=== PATIENT | female | born 1935 | race Caucasian/White ===

== ENCOUNTER 2018-11-27 09:46 | Inpatient (IN) | payer MEDICARE, OTHER ==
[2018-11-27 10:22] LABS: ADD MAN DIFF? NO
[2018-11-27 10:26] LABS: WHITE BLOOD COUNT 11.7 10^3/ul (4.8-10.8)
[2018-11-27 10:26] LABS: ABNORMAL IP MESSAGE 1; BASOPHIL # 0.1 10^3/ul (0.0-0.1); BASOPHILS % 0.4 % (0.0-2.0); EOSINOPHILS % 0.1 % (0.0-7.0); HEMATOCRIT 40.4 % (37.0-47.0); HEMOGLOBIN 12.5 g/dl (12.0-16.0); LYMPHOCYTES # 2.2 10^3/ul (0.8-2.9); LYMPHOCYTES % 18.5 % (15.0-51.0); MEAN CORPUSCULAR HEMOGLOBIN 24.4 pg (29.0-33.0); MEAN CORPUSCULAR HGB CONC 30.9 g/dl (32.0-37.0); MEAN CORPUSCULAR VOLUME 78.9 fl (82.0-101.0); MEAN PLATELET VOLUME 9.9 fl (7.4-10.4); MONOCYTE # 1.3 10^3/ul (0.3-0.9); MONOCYTES % 10.6 % (0.0-11.0); NEUTROPHIL # 8.2 10^3/ul (1.6-7.5); NEUTROPHILS % 69.7 % (39.0-77.0); PLATELET COUNT 235 10^3/UL (140-415); RED BLOOD COUNT 5.12 10^6/ul (4.20-5.40); RED CELL DISTRIBUTION WIDTH 23.3 % (11.5-14.5)
[2018-11-27 10:27] LABS: POSITIVE DIFF @See below
[2018-11-27] MEDS: CEFEPIME 2GM/50 ML (PMX) 50 ML IVPB (10:35)
[2018-11-27] MEDS: SODIUM CHLORIDE 0.9% 1L BAG IV* (10:36)
[2018-11-27 10:50] LABS: ALANINE AMINOTRANSFERASE 40 IU/L (13-69); ALBUMIN/GLOBULIN RATIO 0.69; ALKALINE PHOSPHATASE 128 IU/L (42-121); ANION GAP 7 (5-13); ASPARTATE AMINO TRANSFERASE 69 IU/L (15-46); BILIRUBIN,INDIRECT 0.2 mg/dl (0-1.1); BILIRUBIN,TOTAL 0.2 mg/dl (0.2-1.3); BLOOD UREA NITROGEN 11 mg/dl (7-20); CALCIUM 8.3 mg/dl (8.4-10.2); CARBON DIOXIDE 29 mmol/L (21-31); CHLORIDE 98 mmol/L (97-110); CREATININE 0.33 mg/dl (0.44-1.00); GLUCOSE 144 mg/dl (70-220); POTASSIUM 4.1 mmol/L (3.5-5.1); SODIUM 134 mmol/L (135-144); TOTAL PROTEIN 7.3 g/dl (6.1-8.1)
[2018-11-27 10:53] LABS: INR 2.12; PARTIAL THROMBOPLASTIN TIME 41.3 Sec (23.0-35.0); PROTIME 23.8 Sec (11.9-14.9); PT RATIO 1.9
[2018-11-27] MEDS: DEXAMETHASONE 10 MG/ML 1 ML INJ IV (10:59)
[2018-11-27] MEDS: MAGNESIUM SULFATE 2 GM/50 ML 50 ML IVPB (10:59)
[2018-11-27 11:01] LABS: TROPONIN-I < 0.012 ng/ml (0.000-0.120)
[2018-11-27] MEDS: ALBUTEROL 0.5% (NEB) 2.5 MG/0.5 ML AMP INH (11:09)
[2018-11-27] MEDS: IPRATROPIUM (NEB) 0.5 MG/2.5 ML AMP INH (11:09)
[2018-11-27] MEDS: VANCOMYCIN 1 GM (PMX) 250 ML IVPB (11:18)
[2018-11-27 11:40] LABS: ADD UMIC YES; UR AMORPHOUS CRYSTAL FEW /HPF (NONE SEEN); UR ASCORBIC ACID 40 mg/dL (NEGATIVE); UR BACTERIA MANY /HPF (NONE SEEN); UR BILIRUBIN (Dip) NEGATIVE (NEGATIVE); UR BLOOD (Dip) 2+ mg/dL (NEGATIVE); UR BUDDING YEAST FEW /HPF (NONE SEEN); UR CLARITY TURBID (CLEAR); UR COLOR AMBER (YELLOW); UR GLUCOSE (Dip) NEGATIVE (NEGATIVE); UR KETONES (Dip) NEGATIVE (NEGATIVE); UR LEUKOCYTE ESTERASE (Dip) 1+ Leu/ul (NEGATIVE); UR MUCUS MODERATE /HPF (NONE SEEN); UR NITRITE (Dip) NEGATIVE (NEGATIVE); UR NONSQUAMOUS EPITHELIAL CELL 1 /HPF (NONE SEEN); UR RBC 66 /HPF (0-5); UR SQUAMOUS EPITHELIAL CELL FEW /HPF (FEW); UR TOTAL PROTEIN (Dip) 1+ mg/dl (NEGATIVE); UR UROBILINOGEN (Dip) NEGATIVE (NEGATIVE); UR WBC > 182 /HPF (0-5)
[2018-11-27 12:57] LABS: LACTIC ACID 2.5 mmol/L (0.5-2.0)
[2018-11-27] MEDS ORDERED: ONDANSETRON 4 MG INJ IV (13:00)
[2018-11-27] MEDS ORDERED: ACETAMINOPHEN 325 MG TAB PO (13:00)
[2018-11-27] MEDS ORDERED: METOPROLOL 25 MG TAB PO (15:30)
[2018-11-27] MEDS ORDERED: VANCOMYCIN IV PER PHARMACY XX (15:30)
[2018-11-27] MEDS ORDERED: PENDING SANTYL ORDER FOR WOUND CARE XX (16:00)
[2018-11-27] MEDS ORDERED: ALBUTEROL/IPRATROPIUM (NEB) 3 ML AMP HHN (16:00)
[2018-11-27] MEDS: METHYLPREDNISOLONE 40 MG INJ IV (17:27)
[2018-11-27] MEDS: ALBUTEROL/IPRATROPIUM (NEB) 3 ML AMP HHN ×2 (18:17→21:09)
[2018-11-27] MEDS: GUAIFENESIN LA 600 MG TABSR PO (21:33)
[2018-11-27] MEDS: PRIMIDONE 250 MG TAB PO (21:33)
[2018-11-27] MEDS: DOCUSATE SODIUM 100 MG CAP PO (21:33)
[2018-11-27] MEDS: METOPROLOL 25 MG TAB PO (21:35)
[2018-11-27] MEDS: CALCIUM/VITAMIN D (500/200) TAB PO (21:35)
[2018-11-27] MEDS: ATORVASTATIN 80 MG TAB PO (21:36)
[2018-11-27] MEDS: CEFEPIME 1GM/50 ML (PMX) 50 ML IVPB (21:37)
[2018-11-28] MEDS: METHYLPREDNISOLONE 40 MG INJ IV ×5 (00:32→23:14)
[2018-11-28] MEDS: ALBUTEROL/IPRATROPIUM (NEB) 3 ML AMP HHN ×6 (01:49→20:33)
[2018-11-28] MEDS: PANTOPRAZOLE (EC) 40 MG TAB PO (05:19)
[2018-11-28] MEDS: CEFEPIME 1GM/50 ML (PMX) 50 ML IVPB ×2 (09:06→20:40)
[2018-11-28] MEDS: FLUOXETINE 10 MG CAP PO (09:13)
[2018-11-28] MEDS: METOPROLOL 25 MG TAB PO ×2 (09:13→20:41)
[2018-11-28] MEDS: BISACODYL 10 MG SUPP PR (09:13)
[2018-11-28] MEDS: PRIMIDONE 250 MG TAB PO ×2 (09:15→20:41)
[2018-11-28] MEDS: CALCIUM/VITAMIN D (500/200) TAB PO ×2 (09:15→20:40)
[2018-11-28] MEDS: DOCUSATE SODIUM 100 MG CAP PO ×2 (09:15→20:40)
[2018-11-28] MEDS: GUAIFENESIN LA 600 MG TABSR PO ×2 (09:15→20:40)
[2018-11-28] MEDS: ASCORBIC ACID 500 MG TAB PO (09:15)
[2018-11-28] MEDS: ENOXAPARIN 30 MG/0.3 ML SYG SC (09:38)
[2018-11-28] MEDS: VANCOMYCIN 750 MG (PMX) 250 ML IVPB (09:44)
[2018-11-28] MEDS: PREGABALIN 75 MG CAP PO ×2 (11:25→20:43)
[2018-11-28] MEDS: SULFASALAZINE 500 MG TAB PO ×2 (13:21→20:40)
[2018-11-28] MEDS: ATORVASTATIN 80 MG TAB PO (20:40)
[2018-11-29] MEDS: ALBUTEROL/IPRATROPIUM (NEB) 3 ML AMP HHN ×6 (00:29→20:43)
[2018-11-29] MEDS: PANTOPRAZOLE (EC) 40 MG TAB PO (05:45)
[2018-11-29] MEDS: METHYLPREDNISOLONE 40 MG INJ IV ×4 (05:45→23:16)
[2018-11-29 08:36] LABS: ADD MAN DIFF? NO
[2018-11-29 08:41] LABS: WHITE BLOOD COUNT 9.9 10^3/ul (4.8-10.8)
[2018-11-29 08:41] LABS: ABNORMAL IP MESSAGE 1; BASOPHILS % 0.1 % (0.0-2.0); HEMATOCRIT 37.7 % (37.0-47.0); HEMOGLOBIN 11.4 g/dl (12.0-16.0); LYMPHOCYTES # 0.9 10^3/ul (0.8-2.9); LYMPHOCYTES % 9.5 % (15.0-51.0); MEAN CORPUSCULAR HEMOGLOBIN 24.2 pg (29.0-33.0); MEAN CORPUSCULAR HGB CONC 30.2 g/dl (32.0-37.0); MEAN CORPUSCULAR VOLUME 79.9 fl (82.0-101.0); MONOCYTE # 0.5 10^3/ul (0.3-0.9); MONOCYTES % 5.5 % (0.0-11.0); NEUTROPHIL # 8.3 10^3/ul (1.6-7.5); NEUTROPHILS % 84.2 % (39.0-77.0); PLATELET COUNT 241 10^3/UL (140-415); RED BLOOD COUNT 4.72 10^6/ul (4.20-5.40); RED CELL DISTRIBUTION WIDTH 23.6 % (11.5-14.5)
[2018-11-29 08:43] LABS: POSITIVE DIFF @See below
[2018-11-29] MEDS: CEFEPIME 1GM/50 ML (PMX) 50 ML IVPB ×2 (09:10→21:55)
[2018-11-29] MEDS: PRIMIDONE 250 MG TAB PO ×2 (09:11→21:55)
[2018-11-29] MEDS: SULFASALAZINE 500 MG TAB PO ×3 (09:11→21:55)
[2018-11-29] MEDS: BISACODYL 10 MG SUPP PR (09:11)
[2018-11-29] MEDS: FLUOXETINE 10 MG CAP PO (09:11)
[2018-11-29] MEDS: ASCORBIC ACID 500 MG TAB PO (09:11)
[2018-11-29] MEDS: CALCIUM/VITAMIN D (500/200) TAB PO ×2 (09:11→21:55)
[2018-11-29] MEDS: GUAIFENESIN LA 600 MG TABSR PO ×2 (09:11→21:55)
[2018-11-29] MEDS: DOCUSATE SODIUM 100 MG CAP PO ×2 (09:11→21:56)
[2018-11-29] MEDS: PREGABALIN 75 MG CAP PO ×2 (09:12→21:59)
[2018-11-29] MEDS: METOPROLOL 25 MG TAB PO ×2 (09:12→21:56)
[2018-11-29] MEDS: ENOXAPARIN 30 MG/0.3 ML SYG SC (09:19)
[2018-11-29 09:23] LABS: ANION GAP 5 (5-13); BLOOD UREA NITROGEN 11 mg/dl (7-20); CALCIUM 8.7 mg/dl (8.4-10.2); CARBON DIOXIDE 33 mmol/L (21-31); CHLORIDE 99 mmol/L (97-110); CREATININE 0.35 mg/dl (0.44-1.00); GLUCOSE 130 mg/dl (70-220); MAGNESIUM 2.1 mg/dl (1.7-2.5); POTASSIUM 4.4 mmol/L (3.5-5.1); SODIUM 137 mmol/L (135-144)
[2018-11-29] MEDS: VANCOMYCIN 750 MG (PMX) 250 ML IVPB (09:50)
[2018-11-29] MEDS: POTASSIUM CHLORIDE (SR) 10 MEQ TAB PO (14:54)
[2018-11-29] MEDS: FUROSEMIDE 40 MG INJ IV (14:54)
[2018-11-29] MEDS: ATORVASTATIN 80 MG TAB PO (21:55)
[2018-11-30] MEDS: ALBUTEROL/IPRATROPIUM (NEB) 3 ML AMP HHN ×6 (01:35→21:00)
[2018-11-30] MEDS: METHYLPREDNISOLONE 40 MG INJ IV ×4 (06:07→23:33)
[2018-11-30] MEDS: PANTOPRAZOLE (EC) 40 MG TAB PO (06:07)
[2018-11-30 06:10] LABS: ADD MAN DIFF? NO
[2018-11-30 06:35] LABS: WHITE BLOOD COUNT 9.5 10^3/ul (4.8-10.8)
[2018-11-30 06:35] LABS: ABNORMAL IP MESSAGE 1; BASOPHILS % 0.1 % (0.0-2.0); HEMATOCRIT 44.2 % (37.0-47.0); HEMOGLOBIN 13.5 g/dl (12.0-16.0); LYMPHOCYTES # 1.3 10^3/ul (0.8-2.9); LYMPHOCYTES % 13.7 % (15.0-51.0); MEAN CORPUSCULAR HEMOGLOBIN 24.7 pg (29.0-33.0); MEAN CORPUSCULAR HGB CONC 30.5 g/dl (32.0-37.0); MEAN CORPUSCULAR VOLUME 80.8 fl (82.0-101.0); MEAN PLATELET VOLUME 10.1 fl (7.4-10.4); MONOCYTES % 10.3 % (0.0-11.0); NEUTROPHIL # 7.1 10^3/ul (1.6-7.5); NEUTROPHILS % 75.1 % (39.0-77.0); PLATELET COUNT 200 10^3/UL (140-415); RED BLOOD COUNT 5.47 10^6/ul (4.20-5.40)
[2018-11-30 06:50] LABS: ANION GAP 4 (5-13); BLOOD UREA NITROGEN 13 mg/dl (7-20); CALCIUM 8.8 mg/dl (8.4-10.2); CARBON DIOXIDE 35 mmol/L (21-31); CHLORIDE 98 mmol/L (97-110); CREATININE 0.38 mg/dl (0.44-1.00); GLUCOSE 122 mg/dl (70-220); POTASSIUM 4.5 mmol/L (3.5-5.1); SODIUM 137 mmol/L (135-144)
[2018-11-30 06:55] LABS: POSITIVE DIFF @See below
[2018-11-30] MEDS: CEFEPIME 1GM/50 ML (PMX) 50 ML IVPB ×2 (08:34→23:26)
[2018-11-30] MEDS: FLUOXETINE 10 MG CAP PO (08:35)
[2018-11-30] MEDS: GUAIFENESIN LA 600 MG TABSR PO ×2 (08:35→23:26)
[2018-11-30] MEDS: FUROSEMIDE 40 MG INJ IV ×2 (08:35→14:06)
[2018-11-30] MEDS: CALCIUM/VITAMIN D (500/200) TAB PO ×2 (08:35→23:27)
[2018-11-30] MEDS: BISACODYL 10 MG SUPP PR (08:35)
[2018-11-30] MEDS: POTASSIUM CHLORIDE (SR) 10 MEQ TAB PO (08:35)
[2018-11-30] MEDS: PRIMIDONE 250 MG TAB PO ×2 (08:35→23:29)
[2018-11-30] MEDS: METOPROLOL 25 MG TAB PO ×2 (08:36→23:28)
[2018-11-30] MEDS: DOCUSATE SODIUM 100 MG CAP PO ×2 (08:38→23:27)
[2018-11-30] MEDS: SULFASALAZINE 500 MG TAB PO ×3 (08:39→23:26)
[2018-11-30] MEDS: PREGABALIN 75 MG CAP PO ×2 (08:41→23:33)
[2018-11-30] MEDS: ASCORBIC ACID 500 MG TAB PO (09:00)
[2018-11-30] MEDS: ENOXAPARIN 30 MG/0.3 ML SYG SC (09:00)
[2018-11-30 10:05] LABS: VANCOMYCIN,TROUGH 6.8 ug/ml (10.0-20.0)
[2018-11-30] MEDS: VANCOMYCIN 750 MG (PMX) 250 ML IVPB (10:19)
[2018-11-30] MEDS: DILTIAZEM-D5W 125MG/125ML DRIP 125 ML IV ×3 (11:20→14:04)
[2018-11-30] MEDS ORDERED: DILTIAZEM-D5W 125MG/125ML DRIP 125 ML IV (11:30)
[2018-11-30] MEDS: ATORVASTATIN 80 MG TAB PO (23:26)
[2018-12-01] MEDS: DILTIAZEM-D5W 125MG/125ML DRIP 125 ML IV ×3 (00:19→21:39)
[2018-12-01] MEDS: ALBUTEROL/IPRATROPIUM (NEB) 3 ML AMP HHN ×6 (01:00→20:22)
[2018-12-01] MEDS: METHYLPREDNISOLONE 40 MG INJ IV ×3 (06:21→17:59)
[2018-12-01] MEDS: PANTOPRAZOLE (EC) 40 MG TAB PO (06:21)
[2018-12-01 06:24] LABS: ADD MAN DIFF? NO
[2018-12-01 06:26] LABS: ABNORMAL IP MESSAGE 1; BASOPHILS % 0.3 % (0.0-2.0); EOSINOPHILS % 0.1 % (0.0-7.0); HEMATOCRIT 38.8 % (37.0-47.0); HEMOGLOBIN 12.1 g/dl (12.0-16.0); LYMPHOCYTES # 1.5 10^3/ul (0.8-2.9); LYMPHOCYTES % 15.2 % (15.0-51.0); MEAN CORPUSCULAR HEMOGLOBIN 25.1 pg (29.0-33.0); MEAN CORPUSCULAR HGB CONC 31.2 g/dl (32.0-37.0); MEAN CORPUSCULAR VOLUME 80.3 fl (82.0-101.0); MEAN PLATELET VOLUME 9.8 fl (7.4-10.4); MONOCYTES % 10.6 % (0.0-11.0); NEUTROPHIL # 7.1 10^3/ul (1.6-7.5); NEUTROPHILS % 72.5 % (39.0-77.0); PLATELET COUNT 249 10^3/UL (140-415); RED BLOOD COUNT 4.83 10^6/ul (4.20-5.40); RED CELL DISTRIBUTION WIDTH 23.3 % (11.5-14.5)
[2018-12-01 06:26] LABS: WHITE BLOOD COUNT 9.8 10^3/ul (4.8-10.8)
[2018-12-01 06:29] LABS: POSITIVE DIFF @See below
[2018-12-01 06:55] LABS: ANION GAP 5 (5-13); BLOOD UREA NITROGEN 17 mg/dl (7-20); CALCIUM 8.4 mg/dl (8.4-10.2); CARBON DIOXIDE 40 mmol/L (21-31); CHLORIDE 92 mmol/L (97-110); CREATININE 0.45 mg/dl (0.44-1.00); GLUCOSE 120 mg/dl (70-220); MAGNESIUM 1.9 mg/dl (1.7-2.5); POTASSIUM 3.6 mmol/L (3.5-5.1); SODIUM 137 mmol/L (135-144)
[2018-12-01 07:05] LABS: T4 (THYROXINE) 10.7 ug/dl (5.5-11.0)
[2018-12-01 07:19] LABS: THYROID STIMULATING HORMONE 0.801 MIU/L (0.465-4.680)
[2018-12-01] MEDS: BISACODYL 10 MG SUPP PR (09:46)
[2018-12-01] MEDS: GUAIFENESIN LA 600 MG TABSR PO ×2 (09:46→21:27)
[2018-12-01] MEDS: SULFASALAZINE 500 MG TAB PO ×3 (09:46→21:27)
[2018-12-01] MEDS: DOCUSATE SODIUM 100 MG CAP PO ×2 (09:46→21:26)
[2018-12-01] MEDS: PRIMIDONE 250 MG TAB PO ×2 (09:46→21:27)
[2018-12-01] MEDS: POTASSIUM CHLORIDE (SR) 10 MEQ TAB PO (09:46)
[2018-12-01] MEDS: ASCORBIC ACID 500 MG TAB PO (09:46)
[2018-12-01] MEDS: METOPROLOL 25 MG TAB PO ×2 (09:47→21:28)
[2018-12-01] MEDS: CALCIUM/VITAMIN D (500/200) TAB PO ×2 (09:47→21:27)
[2018-12-01] MEDS: FLUOXETINE 10 MG CAP PO (09:47)
[2018-12-01] MEDS: FUROSEMIDE 40 MG INJ IV (09:48)
[2018-12-01] MEDS: CEFEPIME 1GM/50 ML (PMX) 50 ML IVPB ×2 (09:48→21:26)
[2018-12-01] MEDS: PREGABALIN 75 MG CAP PO ×2 (09:50→21:27)
[2018-12-01] MEDS: ENOXAPARIN 30 MG/0.3 ML SYG SC (10:02)
[2018-12-01] MEDS: VANCOMYCIN HCL 1.25 GM in SOD CHLORIDE 0.9% 250 ML IVPB (10:34)
[2018-12-01] MEDS: ATORVASTATIN 80 MG TAB PO (21:27)
[2018-12-02] MEDS: ALBUTEROL/IPRATROPIUM (NEB) 3 ML AMP HHN ×6 (00:37→22:08)
[2018-12-02] MEDS: METHYLPREDNISOLONE 40 MG INJ IV ×4 (00:53→18:02)
[2018-12-02 05:44] LABS: ADD MAN DIFF? NO
[2018-12-02 05:47] LABS: ABNORMAL IP MESSAGE 1; BASOPHIL # 0.1 10^3/ul (0.0-0.1); BASOPHILS % 0.4 % (0.0-2.0); HEMOGLOBIN 11.7 g/dl (12.0-16.0); LYMPHOCYTES % 8.7 % (15.0-51.0); MEAN CORPUSCULAR HEMOGLOBIN 24.6 pg (29.0-33.0); MEAN CORPUSCULAR HGB CONC 30.8 g/dl (32.0-37.0); MEAN CORPUSCULAR VOLUME 79.8 fl (82.0-101.0); MEAN PLATELET VOLUME 9.5 fl (7.4-10.4); MONOCYTE # 0.6 10^3/ul (0.3-0.9); MONOCYTES % 5.2 % (0.0-11.0); NEUTROPHIL # 9.2 10^3/ul (1.6-7.5); NEUTROPHILS % 82.1 % (39.0-77.0); PLATELET COUNT 232 10^3/UL (140-415); RED BLOOD COUNT 4.76 10^6/ul (4.20-5.40); RED CELL DISTRIBUTION WIDTH 22.8 % (11.5-14.5)
[2018-12-02 05:47] LABS: WHITE BLOOD COUNT 11.2 10^3/ul (4.8-10.8)
[2018-12-02 05:52] LABS: POSITIVE DIFF @See below
[2018-12-02 06:18] LABS: BLOOD UREA NITROGEN 18 mg/dl (7-20); CALCIUM 8.7 mg/dl (8.4-10.2); CHLORIDE 92 mmol/L (97-110); CREATININE 0.47 mg/dl (0.44-1.00); GLUCOSE 161 mg/dl (70-220); POTASSIUM 4.8 mmol/L (3.5-5.1); SODIUM 135 mmol/L (135-144)
[2018-12-02 06:25] LABS: ANION GAP 7 (5-13)
[2018-12-02 06:28] LABS: CARBON DIOXIDE 36 mmol/L (21-31)
[2018-12-02] MEDS: PANTOPRAZOLE (EC) 40 MG TAB PO (06:37)
[2018-12-02] MEDS: DILTIAZEM-D5W 125MG/125ML DRIP 125 ML IV ×2 (06:37→20:06)
[2018-12-02] MEDS: SULFASALAZINE 500 MG TAB PO ×3 (08:38→21:16)
[2018-12-02] MEDS: POTASSIUM CHLORIDE (SR) 10 MEQ TAB PO (08:38)
[2018-12-02] MEDS: FLUOXETINE 10 MG CAP PO (08:38)
[2018-12-02] MEDS: CALCIUM/VITAMIN D (500/200) TAB PO ×2 (08:38→21:14)
[2018-12-02] MEDS: BISACODYL 10 MG SUPP PR (08:39)
[2018-12-02] MEDS: GUAIFENESIN LA 600 MG TABSR PO ×2 (08:39→21:14)
[2018-12-02] MEDS: PRIMIDONE 250 MG TAB PO ×2 (08:39→21:14)
[2018-12-02] MEDS: DOCUSATE SODIUM 100 MG CAP PO ×2 (08:39→21:14)
[2018-12-02] MEDS: FUROSEMIDE 40 MG INJ IV (08:39)
[2018-12-02] MEDS: ASCORBIC ACID 500 MG TAB PO (08:39)
[2018-12-02] MEDS: CEFEPIME 1GM/50 ML (PMX) 50 ML IVPB ×2 (08:40→21:10)
[2018-12-02] MEDS: VANCOMYCIN HCL 1.25 GM in SOD CHLORIDE 0.9% 250 ML IVPB (09:00)
[2018-12-02] MEDS: PREGABALIN 75 MG CAP PO ×2 (09:00→21:17)
[2018-12-02] MEDS: METOPROLOL 25 MG TAB PO ×3 (09:30→21:15)
[2018-12-02] MEDS: ENOXAPARIN 30 MG/0.3 ML SYG SC (09:50)
[2018-12-02] MEDS: WARFARIN 5 MG TAB GTB (18:02)
[2018-12-02] MEDS: ATORVASTATIN 80 MG TAB PO (21:14)
[2018-12-03] MEDS: METHYLPREDNISOLONE 40 MG INJ IV ×4 (00:44→17:33)
[2018-12-03] MEDS: ALBUTEROL/IPRATROPIUM (NEB) 3 ML AMP HHN ×6 (01:20→21:50)
[2018-12-03] MEDS: PANTOPRAZOLE (EC) 40 MG TAB PO (06:55)
[2018-12-03] MEDS: DILTIAZEM-D5W 125MG/125ML DRIP 125 ML IV ×2 (07:29→08:32)
[2018-12-03] MEDS: ENOXAPARIN 30 MG/0.3 ML SYG SC (09:00)
[2018-12-03] MEDS: BISACODYL 10 MG SUPP PR (09:00)
[2018-12-03] MEDS: PREGABALIN 75 MG CAP PO ×2 (09:00→20:57)
[2018-12-03 09:20] LABS: INR 0.96; PROTIME 12.9 Sec (11.9-14.9)
[2018-12-03] MEDS: FUROSEMIDE 40 MG INJ IV (09:44)
[2018-12-03] MEDS: POTASSIUM CHLORIDE (SR) 10 MEQ TAB PO (09:44)
[2018-12-03] MEDS: SULFASALAZINE 500 MG TAB PO ×3 (09:45→20:57)
[2018-12-03] MEDS: FLUOXETINE 10 MG CAP PO (09:45)
[2018-12-03] MEDS: DOCUSATE SODIUM 100 MG CAP PO ×2 (09:45→20:59)
[2018-12-03] MEDS: PRIMIDONE 250 MG TAB PO ×2 (09:45→20:57)
[2018-12-03] MEDS: CALCIUM/VITAMIN D (500/200) TAB PO ×2 (09:45→20:59)
[2018-12-03] MEDS: ASCORBIC ACID 500 MG TAB PO (09:45)
[2018-12-03] MEDS: METOPROLOL 25 MG TAB PO ×3 (09:45→20:59)
[2018-12-03] MEDS: GUAIFENESIN LA 600 MG TABSR PO ×2 (09:46→20:57)
[2018-12-03] MEDS: CEFEPIME 1GM/50 ML (PMX) 50 ML IVPB ×2 (09:46→20:59)
[2018-12-03] MEDS: VANCOMYCIN HCL 1.25 GM in SOD CHLORIDE 0.9% 250 ML IVPB (11:00)
[2018-12-03] MEDS ORDERED: COLLAGENASE 5 GM (UD JAR) TOP (12:25)
[2018-12-03] MEDS: WARFARIN 5 MG TAB GTB (17:33)
[2018-12-03] MEDS: ATORVASTATIN 80 MG TAB PO (20:57)
[2018-12-04] MEDS: METHYLPREDNISOLONE 40 MG INJ IV ×4 (00:15→23:06)
[2018-12-04] MEDS: ALBUTEROL/IPRATROPIUM (NEB) 3 ML AMP HHN ×6 (01:20→21:25)
[2018-12-04] MEDS: PANTOPRAZOLE (EC) 40 MG TAB PO (05:45)
[2018-12-04] MEDS: CEFEPIME 1GM/50 ML (PMX) 50 ML IVPB ×2 (08:17→23:00)
[2018-12-04] MEDS: POTASSIUM CHLORIDE (SR) 10 MEQ TAB PO (08:18)
[2018-12-04] MEDS: PREGABALIN 75 MG CAP PO ×2 (08:18→23:06)
[2018-12-04] MEDS: SULFASALAZINE 500 MG TAB PO ×3 (08:18→23:05)
[2018-12-04] MEDS: PRIMIDONE 250 MG TAB PO ×2 (08:18→23:06)
[2018-12-04] MEDS: FUROSEMIDE 40 MG INJ IV (08:18)
[2018-12-04] MEDS: CALCIUM/VITAMIN D (500/200) TAB PO ×2 (08:19→23:00)
[2018-12-04] MEDS: FLUOXETINE 10 MG CAP PO (08:19)
[2018-12-04] MEDS: GUAIFENESIN LA 600 MG TABSR PO ×2 (08:19→23:00)
[2018-12-04] MEDS: ASCORBIC ACID 500 MG TAB PO (08:19)
[2018-12-04] MEDS: METOPROLOL 25 MG TAB PO ×3 (08:19→23:01)
[2018-12-04] MEDS: DOCUSATE SODIUM 100 MG CAP PO ×2 (08:19→23:02)
[2018-12-04] MEDS: BISACODYL 10 MG SUPP PR (08:22)
[2018-12-04] MEDS: ENOXAPARIN 30 MG/0.3 ML SYG SC (08:41)
[2018-12-04] MEDS: VANCOMYCIN HCL 1.25 GM in SOD CHLORIDE 0.9% 250 ML IVPB (09:37)
[2018-12-04 10:11] LABS: VANCOMYCIN,TROUGH 14.3 ug/ml (10.0-20.0)
[2018-12-04 10:16] LABS: B-TYPE NATRIURETIC PEPTIDE 1610 PG/ML (0-450)
[2018-12-04] MEDS ORDERED: COLLAGENASE 5 GM (UD JAR) TOP (10:30)
[2018-12-04] MEDS: COLLAGENASE 5 GM (UD JAR) TOP (10:36)
[2018-12-04 10:46] LABS: BLOOD UREA NITROGEN 22 mg/dl (7-20)
[2018-12-04] MEDS: WARFARIN 5 MG TAB GTB (17:28)
[2018-12-04] MEDS: ATORVASTATIN 80 MG TAB PO (23:02)
[2018-12-05] MEDS: ALBUTEROL/IPRATROPIUM (NEB) 3 ML AMP HHN ×6 (01:27→20:28)
[2018-12-05] MEDS: METHYLPREDNISOLONE 40 MG INJ IV ×3 (05:39→21:57)
[2018-12-05] MEDS: PANTOPRAZOLE (EC) 40 MG TAB PO (05:39)
[2018-12-05 06:16] LABS: ADD MAN DIFF? NO
[2018-12-05 06:22] LABS: ABNORMAL IP MESSAGE 1; BASOPHIL # 0.1 10^3/ul (0.0-0.1); BASOPHILS % 0.5 % (0.0-2.0); HEMATOCRIT 40.3 % (37.0-47.0); HEMOGLOBIN 12.5 g/dl (12.0-16.0); LYMPHOCYTES # 1.1 10^3/ul (0.8-2.9); LYMPHOCYTES % 8.3 % (15.0-51.0); MEAN CORPUSCULAR HEMOGLOBIN 24.7 pg (29.0-33.0); MEAN CORPUSCULAR VOLUME 79.5 fl (82.0-101.0); MONOCYTE # 1.2 10^3/ul (0.3-0.9); MONOCYTES % 9.4 % (0.0-11.0); NEUTROPHILS % 78.4 % (39.0-77.0); NUCLEATED RED BLOOD CELLS% 0.2 /100WBC (0.0-0.0); PLATELET COUNT 220 10^3/UL (140-415); RED BLOOD COUNT 5.07 10^6/ul (4.20-5.40); RED CELL DISTRIBUTION WIDTH 22.9 % (11.5-14.5)
[2018-12-05 06:22] LABS: WHITE BLOOD COUNT 12.7 10^3/ul (4.8-10.8)
[2018-12-05 06:33] LABS: POSITIVE DIFF @See below
[2018-12-05 06:42] LABS: ANION GAP 6 (5-13); BLOOD UREA NITROGEN 27 mg/dl (7-20); CALCIUM 8.7 mg/dl (8.4-10.2); CARBON DIOXIDE 39 mmol/L (21-31); CHLORIDE 90 mmol/L (97-110); CREATININE 0.54 mg/dl (0.44-1.00); GLUCOSE 132 mg/dl (70-220); INR 1.26; PROTIME 15.9 Sec (11.9-14.9); PT RATIO 1.2; SODIUM 135 mmol/L (135-144)
[2018-12-05] MEDS: ASCORBIC ACID 500 MG TAB PO (08:36)
[2018-12-05] MEDS: PRIMIDONE 250 MG TAB PO ×2 (08:36→21:58)
[2018-12-05] MEDS: GUAIFENESIN LA 600 MG TABSR PO ×2 (08:36→21:57)
[2018-12-05] MEDS: METOPROLOL 25 MG TAB PO ×3 (08:36→21:59)
[2018-12-05] MEDS: SULFASALAZINE 500 MG TAB PO ×3 (08:37→21:58)
[2018-12-05] MEDS: DOCUSATE SODIUM 100 MG CAP PO ×2 (08:37→21:57)
[2018-12-05] MEDS: PREGABALIN 75 MG CAP PO ×2 (08:37→21:58)
[2018-12-05] MEDS: CALCIUM/VITAMIN D (500/200) TAB PO ×2 (08:38→21:58)
[2018-12-05] MEDS: POTASSIUM CHLORIDE (SR) 10 MEQ TAB PO (08:38)
[2018-12-05] MEDS: FLUOXETINE 10 MG CAP PO (08:38)
[2018-12-05] MEDS: FUROSEMIDE 40 MG INJ IV (08:39)
[2018-12-05] MEDS: CEFEPIME 1GM/50 ML (PMX) 50 ML IVPB ×2 (08:39→21:57)
[2018-12-05] MEDS: BISACODYL 10 MG SUPP PR (08:39)
[2018-12-05] MEDS: COLLAGENASE 5 GM (UD JAR) TOP (08:39)
[2018-12-05] MEDS: ENOXAPARIN 30 MG/0.3 ML SYG SC (10:30)
[2018-12-05] MEDS: WARFARIN 5 MG TAB GTB (17:57)
[2018-12-05] MEDS: ATORVASTATIN 80 MG TAB PO (21:58)
[2018-12-06] MEDS: ALBUTEROL/IPRATROPIUM (NEB) 3 ML AMP HHN ×6 (01:38→20:02)
[2018-12-06] MEDS: PANTOPRAZOLE (EC) 40 MG TAB PO (05:45)
[2018-12-06] MEDS: METHYLPREDNISOLONE 40 MG INJ IV ×3 (05:45→22:24)
[2018-12-06 06:00] LABS: ADD MAN DIFF? NO
[2018-12-06 06:10] LABS: ABNORMAL IP MESSAGE 1; BASOPHIL # 0.1 10^3/ul (0.0-0.1); BASOPHILS % 0.4 % (0.0-2.0); EOSINOPHILS % 0.1 % (0.0-7.0); HEMATOCRIT 42.2 % (37.0-47.0); HEMOGLOBIN 13.3 g/dl (12.0-16.0); LYMPHOCYTES # 1.3 10^3/ul (0.8-2.9); LYMPHOCYTES % 10.4 % (15.0-51.0); MEAN CORPUSCULAR HEMOGLOBIN 24.9 pg (29.0-33.0); MEAN CORPUSCULAR HGB CONC 31.5 g/dl (32.0-37.0); MEAN PLATELET VOLUME 10.2 fl (7.4-10.4); MONOCYTE # 1.3 10^3/ul (0.3-0.9); MONOCYTES % 10.4 % (0.0-11.0); NEUTROPHIL # 9.5 10^3/ul (1.6-7.5); NEUTROPHILS % 75.7 % (39.0-77.0); PLATELET COUNT 210 10^3/UL (140-415); RED BLOOD COUNT 5.34 10^6/ul (4.20-5.40); RED CELL DISTRIBUTION WIDTH 22.4 % (11.5-14.5)
[2018-12-06 06:10] LABS: WHITE BLOOD COUNT 12.5 10^3/ul (4.8-10.8)
[2018-12-06 06:30] LABS: INR 1.55; PROTIME 18.7 Sec (11.9-14.9); PT RATIO 1.5
[2018-12-06 06:36] LABS: ANION GAP 7 (5-13); BLOOD UREA NITROGEN 26 mg/dl (7-20); CALCIUM 8.7 mg/dl (8.4-10.2); CARBON DIOXIDE 40 mmol/L (21-31); CHLORIDE 87 mmol/L (97-110); CREATININE 0.46 mg/dl (0.44-1.00); GLUCOSE 124 mg/dl (70-220); MAGNESIUM 2.4 mg/dl (1.7-2.5); POTASSIUM 4.6 mmol/L (3.5-5.1); SODIUM 134 mmol/L (135-144)
[2018-12-06 07:00] LABS: POSITIVE DIFF @See below
[2018-12-06] MEDS: ENOXAPARIN 30 MG/0.3 ML SYG SC (08:48)
[2018-12-06] MEDS: COLLAGENASE 5 GM (UD JAR) TOP (08:50)
[2018-12-06] MEDS: BISACODYL 10 MG SUPP PR (08:50)
[2018-12-06] MEDS: GUAIFENESIN LA 600 MG TABSR PO ×2 (08:51→21:42)
[2018-12-06] MEDS: DOCUSATE SODIUM 100 MG CAP PO ×2 (08:51→21:42)
[2018-12-06] MEDS: FUROSEMIDE 40 MG INJ IV (08:54)
[2018-12-06] MEDS: FLUOXETINE 10 MG CAP PO (08:54)
[2018-12-06] MEDS: CEFEPIME 1GM/50 ML (PMX) 50 ML IVPB ×2 (08:54→22:26)
[2018-12-06] MEDS: ASCORBIC ACID 500 MG TAB PO (08:55)
[2018-12-06] MEDS: PRIMIDONE 250 MG TAB PO ×2 (08:55→21:42)
[2018-12-06] MEDS: CALCIUM/VITAMIN D (500/200) TAB PO ×2 (08:55→21:42)
[2018-12-06] MEDS: METOPROLOL 25 MG TAB PO ×3 (08:55→21:41)
[2018-12-06] MEDS: SULFASALAZINE 500 MG TAB PO ×3 (08:55→21:42)
[2018-12-06] MEDS: PREGABALIN 75 MG CAP PO ×2 (08:57→21:49)
[2018-12-06] MEDS: WARFARIN 5 MG TAB GTB (17:46)
[2018-12-06] MEDS: PROMETHAZINE (1.25 MG/ML) 5 ML CUP PO (18:11)
[2018-12-06] MEDS: ATORVASTATIN 80 MG TAB PO (21:42)
[2018-12-07] MEDS: ALBUTEROL/IPRATROPIUM (NEB) 3 ML AMP HHN ×6 (02:31→21:56)
[2018-12-07] MEDS: PANTOPRAZOLE (EC) 40 MG TAB PO (06:00)
[2018-12-07 06:27] LABS: ADD MAN DIFF? NO
[2018-12-07 06:32] LABS: WHITE BLOOD COUNT 12.8 10^3/ul (4.8-10.8)
[2018-12-07 06:32] LABS: BASOPHIL # 0.1 10^3/ul (0.0-0.1); BASOPHILS % 0.5 % (0.0-2.0); HEMOGLOBIN 13.5 g/dl (12.0-16.0); LYMPHOCYTES # 1.4 10^3/ul (0.8-2.9); MEAN CORPUSCULAR HEMOGLOBIN 25.2 pg (29.0-33.0); MEAN CORPUSCULAR HGB CONC 31.4 g/dl (32.0-37.0); MEAN CORPUSCULAR VOLUME 80.2 fl (82.0-101.0); MEAN PLATELET VOLUME 10.5 fl (7.4-10.4); MONOCYTE # 1.5 10^3/ul (0.3-0.9); MONOCYTES % 11.5 % (0.0-11.0); NEUTROPHIL # 9.5 10^3/ul (1.6-7.5); NEUTROPHILS % 74.3 % (39.0-77.0); PLATELET COUNT 170 10^3/UL (140-415); RED BLOOD COUNT 5.36 10^6/ul (4.20-5.40)
[2018-12-07 07:01] LABS: INR 1.61; PROTIME 19.2 Sec (11.9-14.9); PT RATIO 1.5
[2018-12-07 07:03] LABS: ALANINE AMINOTRANSFERASE 58 IU/L (13-69); ALBUMIN 3.1 g/dl (3.3-4.9); ALBUMIN/GLOBULIN RATIO 0.75; ALKALINE PHOSPHATASE 112 IU/L (42-121); ASPARTATE AMINO TRANSFERASE 63 IU/L (15-46); BLOOD UREA NITROGEN 28 mg/dl (7-20); CHLORIDE 88 mmol/L (97-110); CREATININE 0.48 mg/dl (0.44-1.00); GLUCOSE 122 mg/dl (70-220); POTASSIUM 3.9 mmol/L (3.5-5.1); SODIUM 135 mmol/L (135-144); TOTAL PROTEIN 7.2 g/dl (6.1-8.1)
[2018-12-07 07:11] LABS: ANION GAP 9 (5-13)
[2018-12-07 07:12] LABS: CARBON DIOXIDE 38 mmol/L (21-31)
[2018-12-07] MEDS: BISACODYL 10 MG SUPP PR (08:47)
[2018-12-07] MEDS: CEFEPIME 1GM/50 ML (PMX) 50 ML IVPB ×2 (08:47→20:47)
[2018-12-07] MEDS: METHYLPREDNISOLONE 40 MG INJ IV ×2 (08:49→20:47)
[2018-12-07] MEDS: CALCIUM/VITAMIN D (500/200) TAB PO ×2 (08:49→20:56)
[2018-12-07] MEDS: SULFASALAZINE 500 MG TAB PO ×3 (08:49→20:52)
[2018-12-07] MEDS: METOPROLOL 25 MG TAB PO ×3 (08:49→20:55)
[2018-12-07] MEDS: FLUOXETINE 10 MG CAP PO (08:49)
[2018-12-07] MEDS: PRIMIDONE 250 MG TAB PO ×2 (08:49→20:56)
[2018-12-07] MEDS: ASCORBIC ACID 500 MG TAB PO (08:49)
[2018-12-07] MEDS: COLLAGENASE 5 GM (UD JAR) TOP (08:50)
[2018-12-07] MEDS: FUROSEMIDE 40 MG INJ IV (08:50)
[2018-12-07] MEDS: GUAIFENESIN LA 600 MG TABSR PO ×2 (08:50→20:56)
[2018-12-07] MEDS: DOCUSATE SODIUM 100 MG CAP PO ×2 (08:51→20:52)
[2018-12-07] MEDS: PREGABALIN 75 MG CAP PO ×2 (09:20→20:56)
[2018-12-07] MEDS: ENOXAPARIN 30 MG/0.3 ML SYG SC (09:54)
[2018-12-07] MEDS: DEXTROSE 5%-0.225% NACL 1,000 ML IV (14:17)
[2018-12-07] MEDS: WARFARIN 5 MG TAB GTB (16:46)
[2018-12-07] MEDS: ATORVASTATIN 80 MG TAB PO (20:52)
[2018-12-08] MEDS: ALBUTEROL/IPRATROPIUM (NEB) 3 ML AMP HHN ×6 (01:26→20:32)
[2018-12-08] MEDS: PANTOPRAZOLE (EC) 40 MG TAB PO (05:15)
[2018-12-08 05:53] LABS: ADD MAN DIFF? NO
[2018-12-08 06:05] LABS: ABNORMAL IP MESSAGE 1; BASOPHILS % 0.2 % (0.0-2.0); EOSINOPHILS % 0.1 % (0.0-7.0); HEMATOCRIT 42.7 % (37.0-47.0); HEMOGLOBIN 13.4 g/dl (12.0-16.0); LYMPHOCYTES # 2.2 10^3/ul (0.8-2.9); LYMPHOCYTES % 11.6 % (15.0-51.0); MEAN CORPUSCULAR HGB CONC 31.4 g/dl (32.0-37.0); MEAN CORPUSCULAR VOLUME 79.5 fl (82.0-101.0); MEAN PLATELET VOLUME 10.9 fl (7.4-10.4); MONOCYTE # 1.9 10^3/ul (0.3-0.9); MONOCYTES % 10.1 % (0.0-11.0); NEUTROPHIL # 14.5 10^3/ul (1.6-7.5); NEUTROPHILS % 76.6 % (39.0-77.0); PLATELET COUNT 156 10^3/UL (140-415); RED BLOOD COUNT 5.37 10^6/ul (4.20-5.40); RED CELL DISTRIBUTION WIDTH 22.5 % (11.5-14.5)
[2018-12-08 06:05] LABS: WHITE BLOOD COUNT 18.9 10^3/ul (4.8-10.8)
[2018-12-08 06:15] LABS: POSITIVE DIFF @See below
[2018-12-08 06:19] LABS: INR 1.84; PROTIME 21.3 Sec (11.9-14.9); PT RATIO 1.7
[2018-12-08 06:31] LABS: BLOOD UREA NITROGEN 27 mg/dl (7-20); CALCIUM 8.9 mg/dl (8.4-10.2); CHLORIDE 89 mmol/L (97-110); CREATININE 0.41 mg/dl (0.44-1.00); GLUCOSE 124 mg/dl (70-220); POTASSIUM 3.7 mmol/L (3.5-5.1); SODIUM 135 mmol/L (135-144)
[2018-12-08 06:40] LABS: ANION GAP 9 (5-13); CARBON DIOXIDE 37 mmol/L (21-31)
[2018-12-08] MEDS: DOCUSATE SODIUM 100 MG CAP PO ×2 (08:10→22:06)
[2018-12-08] MEDS: SULFASALAZINE 500 MG TAB PO ×3 (08:10→22:06)
[2018-12-08] MEDS: PREGABALIN 75 MG CAP PO ×2 (08:11→22:07)
[2018-12-08] MEDS: METOPROLOL 25 MG TAB PO ×3 (08:11→22:08)
[2018-12-08] MEDS: FLUOXETINE 10 MG CAP PO (08:11)
[2018-12-08] MEDS: PRIMIDONE 250 MG TAB PO ×2 (08:11→22:07)
[2018-12-08] MEDS: ASCORBIC ACID 500 MG TAB PO (08:11)
[2018-12-08] MEDS: CALCIUM/VITAMIN D (500/200) TAB PO ×2 (08:11→22:06)
[2018-12-08] MEDS: GUAIFENESIN LA 600 MG TABSR PO ×2 (08:11→22:07)
[2018-12-08] MEDS: CEFEPIME 1GM/50 ML (PMX) 50 ML IVPB ×2 (08:59→22:06)
[2018-12-08] MEDS: COLLAGENASE 5 GM (UD JAR) TOP (09:00)
[2018-12-08] MEDS: FUROSEMIDE 40 MG TAB NGT (09:45)
[2018-12-08] MEDS: ENOXAPARIN 30 MG/0.3 ML SYG SC (10:04)
[2018-12-08] MEDS: DEXTROSE 5%-0.225% NACL 1,000 ML IV (14:38)
[2018-12-08] MEDS: predniSONE 10 MG TAB GTB (15:15)
[2018-12-08] MEDS: ACETAMINOPHEN 325 MG TAB PO (17:08)
[2018-12-08] MEDS: WARFARIN 5 MG TAB GTB (17:08)
[2018-12-08] MEDS: PROMETHAZINE (1.25 MG/ML) 5 ML CUP PO (18:22)
[2018-12-08] MEDS: traMADol 50 MG TAB GTB (18:23)
[2018-12-08] MEDS: ATORVASTATIN 80 MG TAB PO (22:07)
[2018-12-08] MEDS: PHENOL 1.4% SOLN 180 ML BTL MT (23:54)
[2018-12-09] MEDS: ALBUTEROL/IPRATROPIUM (NEB) 3 ML AMP HHN ×6 (01:58→20:39)
[2018-12-09 06:01] LABS: ADD MAN DIFF? NO
[2018-12-09 06:09] LABS: ABNORMAL IP MESSAGE 1; BASOPHILS % 0.1 % (0.0-2.0); EOSINOPHILS # 0.1 10^3/ul (0.0-0.5); EOSINOPHILS % 0.9 % (0.0-7.0); HEMATOCRIT 42.9 % (37.0-47.0); HEMOGLOBIN 13.5 g/dl (12.0-16.0); LYMPHOCYTES # 2.3 10^3/ul (0.8-2.9); LYMPHOCYTES % 16.1 % (15.0-51.0); MEAN CORPUSCULAR HEMOGLOBIN 25.1 pg (29.0-33.0); MEAN CORPUSCULAR HGB CONC 31.5 g/dl (32.0-37.0); MEAN CORPUSCULAR VOLUME 79.7 fl (82.0-101.0); MEAN PLATELET VOLUME 10.9 fl (7.4-10.4); MONOCYTE # 1.9 10^3/ul (0.3-0.9); MONOCYTES % 13.4 % (0.0-11.0); NEUTROPHIL # 9.7 10^3/ul (1.6-7.5); NEUTROPHILS % 67.8 % (39.0-77.0); PLATELET COUNT 148 10^3/UL (140-415); RED BLOOD COUNT 5.38 10^6/ul (4.20-5.40); RED CELL DISTRIBUTION WIDTH 21.9 % (11.5-14.5)
[2018-12-09 06:09] LABS: WHITE BLOOD COUNT 14.3 10^3/ul (4.8-10.8)
[2018-12-09 06:24] LABS: POSITIVE DIFF @See below
[2018-12-09] MEDS: PANTOPRAZOLE (EC) 40 MG TAB PO (06:26)
[2018-12-09] MEDS: FUROSEMIDE 40 MG TAB NGT (06:27)
[2018-12-09 06:28] LABS: INR 2.11; PROTIME 23.7 Sec (11.9-14.9); PT RATIO 1.9
[2018-12-09 06:31] LABS: ANION GAP 10 (5-13); BLOOD UREA NITROGEN 25 mg/dl (7-20); CALCIUM 8.5 mg/dl (8.4-10.2); CARBON DIOXIDE 35 mmol/L (21-31); CHLORIDE 87 mmol/L (97-110); CREATININE 0.39 mg/dl (0.44-1.00); GLUCOSE 132 mg/dl (70-220); POTASSIUM 3.1 mmol/L (3.5-5.1); SODIUM 132 mmol/L (135-144)
[2018-12-09] MEDS: DOCUSATE SODIUM 100 MG CAP PO ×2 (09:15→21:19)
[2018-12-09] MEDS: CALCIUM/VITAMIN D (500/200) TAB PO ×2 (09:15→21:19)
[2018-12-09] MEDS: PRIMIDONE 250 MG TAB PO ×2 (09:15→21:18)
[2018-12-09] MEDS: CEFEPIME 1GM/50 ML (PMX) 50 ML IVPB ×2 (09:15→21:18)
[2018-12-09] MEDS: GUAIFENESIN LA 600 MG TABSR PO (09:15)
[2018-12-09] MEDS: FLUOXETINE 10 MG CAP PO (09:15)
[2018-12-09] MEDS: METOPROLOL 25 MG TAB PO ×3 (09:17→21:21)
[2018-12-09] MEDS: SULFASALAZINE 500 MG TAB PO ×3 (09:17→21:19)
[2018-12-09] MEDS: predniSONE 10 MG TAB GTB (09:17)
[2018-12-09] MEDS: COLLAGENASE 5 GM (UD JAR) TOP (09:17)
[2018-12-09] MEDS: ASCORBIC ACID 500 MG TAB PO (09:17)
[2018-12-09] MEDS: PREGABALIN 75 MG CAP PO ×2 (09:26→21:20)
[2018-12-09] MEDS: ENOXAPARIN 30 MG/0.3 ML SYG SC (09:33)
[2018-12-09] MEDS: PHENOL 1.4% SOLN 180 ML BTL MT (16:37)
[2018-12-09] MEDS: WARFARIN 5 MG TAB GTB (17:55)
[2018-12-09] MEDS: POTASSIUM CHLORIDE (SR) 10 MEQ TAB NGT (21:19)
[2018-12-09] MEDS: ATORVASTATIN 80 MG TAB PO (21:19)
[2018-12-09] MEDS: GUAIFENESIN 20 MG/ML 5ML CUP PO (21:39)
[2018-12-10] MEDS: ALBUTEROL/IPRATROPIUM (NEB) 3 ML AMP HHN ×6 (01:51→20:26)
[2018-12-10] MEDS: LORAZEPAM 2 MG INJ IV (02:15)
[2018-12-10] MEDS ORDERED: LIDOCAINE 1% (MPF) 5 ML VIAL SC (05:00)
[2018-12-10] MEDS: FUROSEMIDE 40 MG TAB NGT (05:12)
[2018-12-10] MEDS: PANTOPRAZOLE (EC) 40 MG TAB PO (05:12)
[2018-12-10] MEDS: LIDOCAINE 1% (MPF) 5 ML VIAL SC (05:30)
[2018-12-10 06:24] LABS: ADD MAN DIFF? NO
[2018-12-10 06:40] LABS: WHITE BLOOD COUNT 15.5 10^3/ul (4.8-10.8)
[2018-12-10 06:40] LABS: ABNORMAL IP MESSAGE 1; BASOPHILS % 0.3 % (0.0-2.0); EOSINOPHILS # 0.2 10^3/ul (0.0-0.5); HEMATOCRIT 42.3 % (37.0-47.0); HEMOGLOBIN 13.3 g/dl (12.0-16.0); LYMPHOCYTES # 1.8 10^3/ul (0.8-2.9); LYMPHOCYTES % 11.4 % (15.0-51.0); MEAN CORPUSCULAR HEMOGLOBIN 25.4 pg (29.0-33.0); MEAN CORPUSCULAR HGB CONC 31.4 g/dl (32.0-37.0); MEAN CORPUSCULAR VOLUME 80.7 fl (82.0-101.0); MEAN PLATELET VOLUME 11.1 fl (7.4-10.4); MONOCYTE # 1.7 10^3/ul (0.3-0.9); MONOCYTES % 11.1 % (0.0-11.0); NEUTROPHIL # 11.3 10^3/ul (1.6-7.5); NEUTROPHILS % 73.3 % (39.0-77.0); PLATELET COUNT 151 10^3/UL (140-415); RED BLOOD COUNT 5.24 10^6/ul (4.20-5.40)
[2018-12-10 06:56] LABS: INR 1.26; PROTIME 15.9 Sec (11.9-14.9); PT RATIO 1.2
[2018-12-10 07:16] LABS: POSITIVE DIFF @See below
[2018-12-10 07:26] LABS: BLOOD UREA NITROGEN 22 mg/dl (7-20); CALCIUM 8.8 mg/dl (8.4-10.2); CHLORIDE 87 mmol/L (97-110); CREATININE 0.39 mg/dl (0.44-1.00); GLUCOSE 111 mg/dl (70-220); MAGNESIUM 2.3 mg/dl (1.7-2.5); POTASSIUM 3.4 mmol/L (3.5-5.1); SODIUM 134 mmol/L (135-144)
[2018-12-10 07:48] LABS: ANION GAP 10 (5-13)
[2018-12-10 07:50] LABS: CARBON DIOXIDE 37 mmol/L (21-31)
[2018-12-10] MEDS: PRIMIDONE 250 MG TAB PO ×2 (09:00→21:11)
[2018-12-10] MEDS: DOCUSATE SODIUM 100 MG CAP PO ×2 (09:00→21:10)
[2018-12-10] MEDS: GUAIFENESIN 20 MG/ML 5ML CUP PO ×2 (09:00→21:43)
[2018-12-10] MEDS: SULFASALAZINE 500 MG TAB PO ×3 (09:00→21:11)
[2018-12-10] MEDS: CALCIUM/VITAMIN D (500/200) TAB PO ×2 (09:00→21:12)
[2018-12-10] MEDS: ASCORBIC ACID 500 MG TAB PO (09:00)
[2018-12-10] MEDS: PREGABALIN 75 MG CAP PO ×2 (09:00→21:11)
[2018-12-10] MEDS: POTASSIUM CHLORIDE (SR) 10 MEQ TAB NGT ×2 (09:00→21:11)
[2018-12-10] MEDS: METOPROLOL 25 MG TAB PO ×3 (09:00→21:12)
[2018-12-10] MEDS: COLLAGENASE 5 GM (UD JAR) TOP (10:18)
[2018-12-10] MEDS: CEFEPIME 1GM/50 ML (PMX) 50 ML IVPB ×2 (10:18→21:13)
[2018-12-10] MEDS: PHENOL 1.4% SOLN 180 ML BTL MT (15:22)
[2018-12-10] MEDS: morphine 2 MG INJ IV ×2 (16:07→17:53)
[2018-12-10] MEDS: WARFARIN 3 MG TAB NGT (16:10)
[2018-12-10] MEDS: FLUOXETINE 10 MG CAP PO (16:14)
[2018-12-10] MEDS: predniSONE 10 MG TAB GTB (16:15)
[2018-12-10] MEDS: ATORVASTATIN 80 MG TAB PO (21:12)
[2018-12-10] MEDS: traMADol 50 MG TAB GTB (21:13)
[2018-12-11] MEDS: ALBUTEROL/IPRATROPIUM (NEB) 3 ML AMP HHN ×6 (01:55→20:18)
[2018-12-11] MEDS: PANTOPRAZOLE (EC) 40 MG TAB PO (05:20)
[2018-12-11] MEDS: FUROSEMIDE 40 MG TAB NGT (05:20)
[2018-12-11 06:27] LABS: ADD MAN DIFF? NO
[2018-12-11 06:34] LABS: ABNORMAL IP MESSAGE 1; BASOPHIL # 0.1 10^3/ul (0.0-0.1); BASOPHILS % 0.4 % (0.0-2.0); EOSINOPHILS # 0.1 10^3/ul (0.0-0.5); EOSINOPHILS % 0.7 % (0.0-7.0); HEMATOCRIT 39.6 % (37.0-47.0); HEMOGLOBIN 12.2 g/dl (12.0-16.0); LYMPHOCYTES # 1.4 10^3/ul (0.8-2.9); LYMPHOCYTES % 10.2 % (15.0-51.0); MEAN CORPUSCULAR HGB CONC 30.8 g/dl (32.0-37.0); MEAN CORPUSCULAR VOLUME 81.1 fl (82.0-101.0); MEAN PLATELET VOLUME 11.3 fl (7.4-10.4); MONOCYTE # 1.6 10^3/ul (0.3-0.9); MONOCYTES % 11.5 % (0.0-11.0); NEUTROPHIL # 10.2 10^3/ul (1.6-7.5); PLATELET COUNT 142 10^3/UL (140-415); RED BLOOD COUNT 4.88 10^6/ul (4.20-5.40); RED CELL DISTRIBUTION WIDTH 21.6 % (11.5-14.5)
[2018-12-11 06:34] LABS: WHITE BLOOD COUNT 13.6 10^3/ul (4.8-10.8)
[2018-12-11 06:37] LABS: POSITIVE DIFF @See below
[2018-12-11 07:00] LABS: INR 1.44; PROTIME 17.6 Sec (11.9-14.9); PT RATIO 1.4
[2018-12-11 07:28] LABS: ANION GAP 7 (5-13); BLOOD UREA NITROGEN 16 mg/dl (7-20); CALCIUM 8.5 mg/dl (8.4-10.2); CARBON DIOXIDE 39 mmol/L (21-31); CHLORIDE 87 mmol/L (97-110); CREATININE 0.34 mg/dl (0.44-1.00); GLUCOSE 123 mg/dl (70-220); POTASSIUM 3.8 mmol/L (3.5-5.1); SODIUM 133 mmol/L (135-144)
[2018-12-11] MEDS: CEFEPIME 1GM/50 ML (PMX) 50 ML IVPB (08:53)
[2018-12-11] MEDS: SULFASALAZINE 500 MG TAB PO ×3 (08:54→22:50)
[2018-12-11] MEDS: CALCIUM/VITAMIN D (500/200) TAB PO ×2 (08:54→22:50)
[2018-12-11] MEDS: POTASSIUM CHLORIDE (SR) 10 MEQ TAB NGT ×2 (08:54→22:50)
[2018-12-11] MEDS: predniSONE 10 MG TAB GTB (08:54)
[2018-12-11] MEDS: ASCORBIC ACID 500 MG TAB PO (08:54)
[2018-12-11] MEDS: PRIMIDONE 250 MG TAB PO ×2 (08:54→22:49)
[2018-12-11] MEDS: DOCUSATE SODIUM 100 MG CAP PO ×2 (08:55→22:48)
[2018-12-11] MEDS: FLUOXETINE 10 MG CAP PO (08:55)
[2018-12-11] MEDS: METOPROLOL 25 MG TAB PO ×3 (08:55→22:51)
[2018-12-11] MEDS: GUAIFENESIN 20 MG/ML 5ML CUP PO ×2 (08:56→22:48)
[2018-12-11] MEDS: COLLAGENASE 5 GM (UD JAR) TOP (08:56)
[2018-12-11] MEDS: PREGABALIN 75 MG CAP PO ×2 (08:59→22:49)
[2018-12-11] MEDS: FUROSEMIDE 20 MG INJ IV (10:19)
[2018-12-11] MEDS: CEFAZOLIN 1 GM/50 ML (PMX) 50 ML IVPB (15:39)
[2018-12-11] MEDS ORDERED: PROPOFOL 20 ML (16:08)
[2018-12-11] MEDS ORDERED: LIDOCAINE 2% (SDV) 5 ML INJ (16:09)
[2018-12-11] MEDS: WARFARIN 7.5 MG TAB GTB (16:48)
[2018-12-11] MEDS: morphine 2 MG INJ IV (20:33)
[2018-12-11] MEDS: ATORVASTATIN 80 MG TAB PO (22:50)
[2018-12-12] MEDS: ALBUTEROL/IPRATROPIUM (NEB) 3 ML AMP HHN ×6 (00:39→20:09)
[2018-12-12] MEDS: PANTOPRAZOLE (EC) 40 MG TAB PO (05:11)
[2018-12-12] MEDS: FUROSEMIDE 40 MG TAB NGT (05:12)
[2018-12-12 06:02] LABS: ADD MAN DIFF? NO
[2018-12-12 06:11] LABS: WHITE BLOOD COUNT 15.9 10^3/ul (4.8-10.8)
[2018-12-12 06:11] LABS: ABNORMAL IP MESSAGE 1; BASOPHILS % 0.2 % (0.0-2.0); EOSINOPHILS # 0.1 10^3/ul (0.0-0.5); EOSINOPHILS % 0.6 % (0.0-7.0); HEMATOCRIT 38.3 % (37.0-47.0); HEMOGLOBIN 12.2 g/dl (12.0-16.0); LYMPHOCYTES # 1.7 10^3/ul (0.8-2.9); LYMPHOCYTES % 10.6 % (15.0-51.0); MEAN CORPUSCULAR HEMOGLOBIN 25.5 pg (29.0-33.0); MEAN CORPUSCULAR HGB CONC 31.9 g/dl (32.0-37.0); MEAN CORPUSCULAR VOLUME 80.1 fl (82.0-101.0); MEAN PLATELET VOLUME 11.3 fl (7.4-10.4); MONOCYTE # 1.8 10^3/ul (0.3-0.9); MONOCYTES % 11.1 % (0.0-11.0); NEUTROPHIL # 12.1 10^3/ul (1.6-7.5); NEUTROPHILS % 75.9 % (39.0-77.0); PLATELET COUNT 145 10^3/UL (140-415); RED BLOOD COUNT 4.78 10^6/ul (4.20-5.40); RED CELL DISTRIBUTION WIDTH 21.9 % (11.5-14.5)
[2018-12-12 06:23] LABS: POSITIVE DIFF @See below
[2018-12-12 06:37] LABS: INR 1.88; PROTIME 21.7 Sec (11.9-14.9); PT RATIO 1.7
[2018-12-12 06:42] LABS: ANION GAP 6 (5-13); BLOOD UREA NITROGEN 16 mg/dl (7-20); CALCIUM 9.2 mg/dl (8.4-10.2); CARBON DIOXIDE 38 mmol/L (21-31); CHLORIDE 90 mmol/L (97-110); CREATININE 0.37 mg/dl (0.44-1.00); GLUCOSE 123 mg/dl (70-220); POTASSIUM 4.6 mmol/L (3.5-5.1); SODIUM 134 mmol/L (135-144)
[2018-12-12] MEDS: DOCUSATE SODIUM 100 MG CAP PO ×2 (08:20→21:08)
[2018-12-12] MEDS: METOPROLOL 25 MG TAB PO ×3 (08:21→21:09)
[2018-12-12] MEDS: CALCIUM/VITAMIN D (500/200) TAB PO ×2 (08:21→21:08)
[2018-12-12] MEDS: PRIMIDONE 250 MG TAB PO ×2 (08:21→21:09)
[2018-12-12] MEDS: PREGABALIN 75 MG CAP PO ×2 (08:21→21:22)
[2018-12-12] MEDS: SULFASALAZINE 500 MG TAB PO ×3 (08:21→21:22)
[2018-12-12] MEDS: predniSONE 10 MG TAB GTB (08:21)
[2018-12-12] MEDS: FLUOXETINE 10 MG CAP PO (08:22)
[2018-12-12] MEDS: POTASSIUM CHLORIDE (SR) 10 MEQ TAB NGT ×2 (08:22→21:08)
[2018-12-12] MEDS: GUAIFENESIN 20 MG/ML 5ML CUP PO ×2 (08:22→21:10)
[2018-12-12] MEDS: ASCORBIC ACID 500 MG TAB PO (08:22)
[2018-12-12] MEDS: COLLAGENASE 5 GM (UD JAR) TOP (08:23)
[2018-12-12] MEDS: WARFARIN 7.5 MG TAB GTB (17:40)
[2018-12-12] MEDS: morphine 2 MG INJ IV (20:54)
[2018-12-12] MEDS: ATORVASTATIN 80 MG TAB PO (21:08)
[2018-12-13] MEDS: ALBUTEROL/IPRATROPIUM (NEB) 3 ML AMP HHN ×6 (01:12→20:31)
[2018-12-13] MEDS: ACETAMINOPHEN 325 MG TAB PO (01:21)
[2018-12-13 06:08] LABS: ADD MAN DIFF? NO
[2018-12-13 06:11] LABS: WHITE BLOOD COUNT 11.3 10^3/ul (4.8-10.8)
[2018-12-13 06:11] LABS: ABNORMAL IP MESSAGE 1; BASOPHILS % 0.3 % (0.0-2.0); EOSINOPHILS # 0.2 10^3/ul (0.0-0.5); EOSINOPHILS % 1.4 % (0.0-7.0); HEMATOCRIT 34.7 % (37.0-47.0); LYMPHOCYTES # 1.4 10^3/ul (0.8-2.9); LYMPHOCYTES % 12.4 % (15.0-51.0); MEAN CORPUSCULAR HEMOGLOBIN 25.5 pg (29.0-33.0); MEAN CORPUSCULAR HGB CONC 31.7 g/dl (32.0-37.0); MEAN CORPUSCULAR VOLUME 80.5 fl (82.0-101.0); MEAN PLATELET VOLUME 11.5 fl (7.4-10.4); MONOCYTE # 1.3 10^3/ul (0.3-0.9); NEUTROPHIL # 8.3 10^3/ul (1.6-7.5); NEUTROPHILS % 73.2 % (39.0-77.0); PLATELET COUNT 143 10^3/UL (140-415); RED BLOOD COUNT 4.31 10^6/ul (4.20-5.40); RED CELL DISTRIBUTION WIDTH 21.7 % (11.5-14.5)
[2018-12-13] MEDS: PANTOPRAZOLE (EC) 40 MG TAB PO (06:16)
[2018-12-13] MEDS: FUROSEMIDE 40 MG TAB NGT (06:16)
[2018-12-13 06:23] LABS: INR 1.66; PROTIME 19.7 Sec (11.9-14.9); PT RATIO 1.5
[2018-12-13 06:24] LABS: POSITIVE DIFF @See below
[2018-12-13 06:52] LABS: ANION GAP 5 (5-13); BLOOD UREA NITROGEN 20 mg/dl (7-20); CALCIUM 8.5 mg/dl (8.4-10.2); CARBON DIOXIDE 35 mmol/L (21-31); CHLORIDE 89 mmol/L (97-110); CREATININE 0.41 mg/dl (0.44-1.00); GLUCOSE 166 mg/dl (70-220); POTASSIUM 4.8 mmol/L (3.5-5.1); SODIUM 129 mmol/L (135-144)
[2018-12-13] MEDS: PREGABALIN 75 MG CAP PO ×2 (08:55→21:00)
[2018-12-13] MEDS: morphine 2 MG INJ IV ×3 (08:55→16:33)
[2018-12-13] MEDS: COLLAGENASE 5 GM (UD JAR) TOP (10:07)
[2018-12-13] MEDS: CALCIUM/VITAMIN D (500/200) TAB PO ×2 (10:08→22:38)
[2018-12-13] MEDS: POTASSIUM CHLORIDE (SR) 10 MEQ TAB NGT (10:08)
[2018-12-13] MEDS: FLUOXETINE 10 MG CAP PO (10:08)
[2018-12-13] MEDS: SULFASALAZINE 500 MG TAB PO ×3 (10:08→22:38)
[2018-12-13] MEDS: ASCORBIC ACID 500 MG TAB PO (10:08)
[2018-12-13] MEDS: PRIMIDONE 250 MG TAB PO ×2 (10:09→22:38)
[2018-12-13] MEDS: DOCUSATE SODIUM 100 MG CAP PO ×2 (10:09→22:35)
[2018-12-13] MEDS: predniSONE 10 MG TAB GTB (10:09)
[2018-12-13] MEDS: METOPROLOL 25 MG TAB PO ×3 (10:11→22:40)
[2018-12-13] MEDS: GUAIFENESIN 20 MG/ML 5ML CUP PO ×2 (12:40→22:35)
[2018-12-13] MEDS: FLUCONAZOLE 100 MG TAB PEG (15:10)
[2018-12-13] MEDS: WARFARIN 10 MG TAB GTB (18:27)
[2018-12-13] MEDS: ATORVASTATIN 80 MG TAB PO (22:35)
[2018-12-13] MEDS: POTASSIUM CHLORIDE 20 MEQ POWDER FOR ORAL SOLN NGT (22:39)
[2018-12-14] MEDS: ALBUTEROL/IPRATROPIUM (NEB) 3 ML AMP HHN ×6 (01:13→20:09)
[2018-12-14] MEDS: PANTOPRAZOLE (EC) 40 MG TAB PO (05:40)
[2018-12-14] MEDS: FUROSEMIDE 40 MG TAB NGT (05:41)
[2018-12-14 07:01] LABS: INR 1.34; PROTIME 16.7 Sec (11.9-14.9); PT RATIO 1.3
[2018-12-14] MEDS: DOCUSATE SODIUM 100 MG CAP PO (09:05)
[2018-12-14] MEDS: GUAIFENESIN 20 MG/ML 5ML CUP PO ×2 (09:05→21:43)
[2018-12-14] MEDS: FLUOXETINE 10 MG CAP PO (09:05)
[2018-12-14] MEDS: predniSONE 10 MG TAB GTB (09:05)
[2018-12-14] MEDS: COLLAGENASE 5 GM (UD JAR) TOP (09:05)
[2018-12-14] MEDS: PRIMIDONE 250 MG TAB PO ×2 (09:06→21:46)
[2018-12-14] MEDS: ASCORBIC ACID 500 MG TAB PO (09:06)
[2018-12-14] MEDS: PREGABALIN 75 MG CAP PO ×2 (09:06→21:43)
[2018-12-14] MEDS: CALCIUM/VITAMIN D (500/200) TAB PO ×2 (09:06→21:44)
[2018-12-14] MEDS: FLUCONAZOLE 100 MG TAB PEG (09:06)
[2018-12-14] MEDS: POTASSIUM CHLORIDE 20 MEQ POWDER FOR ORAL SOLN NGT ×2 (09:06→21:42)
[2018-12-14] MEDS: SULFASALAZINE 500 MG TAB PO ×3 (09:06→21:46)
[2018-12-14] MEDS: METOPROLOL 25 MG TAB PO ×3 (09:07→21:44)
[2018-12-14] MEDS: WARFARIN 10 MG TAB GTB (17:27)
[2018-12-14] MEDS: DOCUSATE SODIUM 10 MG/ML (10ML CUP) PEG (21:43)
[2018-12-14] MEDS: ATORVASTATIN 80 MG TAB PO (21:44)
[2018-12-15] MEDS: ALBUTEROL/IPRATROPIUM (NEB) 3 ML AMP HHN ×6 (00:20→20:11)
[2018-12-15] MEDS: LANSOPRAZOLE 30 MG CAP PEG (05:06)
[2018-12-15] MEDS: FUROSEMIDE 40 MG TAB NGT (05:07)
[2018-12-15] MEDS: PHENOL 1.4% SOLN 180 ML BTL MT (05:14)
[2018-12-15 06:09] LABS: ADD MAN DIFF? NO
[2018-12-15 06:19] LABS: BASOPHILS % 0.2 % (0.0-2.0); EOSINOPHILS # 0.2 10^3/ul (0.0-0.5); EOSINOPHILS % 2.2 % (0.0-7.0); HEMOGLOBIN 10.8 g/dl (12.0-16.0); LYMPHOCYTES # 1.4 10^3/ul (0.8-2.9); LYMPHOCYTES % 13.9 % (15.0-51.0); MEAN CORPUSCULAR HEMOGLOBIN 24.9 pg (29.0-33.0); MEAN CORPUSCULAR HGB CONC 30.9 g/dl (32.0-37.0); MEAN CORPUSCULAR VOLUME 80.6 fl (82.0-101.0); MEAN PLATELET VOLUME 10.9 fl (7.4-10.4); MONOCYTE # 1.2 10^3/ul (0.3-0.9); MONOCYTES % 11.7 % (0.0-11.0); NEUTROPHILS % 70.1 % (39.0-77.0); PLATELET COUNT 191 10^3/UL (140-415); RED BLOOD COUNT 4.34 10^6/ul (4.20-5.40); RED CELL DISTRIBUTION WIDTH 21.5 % (11.5-14.5)
[2018-12-15 06:36] LABS: INR 1.45; PROTIME 17.7 Sec (11.9-14.9); PT RATIO 1.4
[2018-12-15 06:48] LABS: ANION GAP 5 (5-13); BLOOD UREA NITROGEN 19 mg/dl (7-20); CALCIUM 8.6 mg/dl (8.4-10.2); CARBON DIOXIDE 35 mmol/L (21-31); CHLORIDE 92 mmol/L (97-110); CREATININE 0.32 mg/dl (0.44-1.00); GLUCOSE 187 mg/dl (70-220); POTASSIUM 4.7 mmol/L (3.5-5.1); SODIUM 132 mmol/L (135-144)
[2018-12-15] MEDS: DOCUSATE SODIUM 10 MG/ML (10ML CUP) PEG ×2 (08:47→22:05)
[2018-12-15] MEDS: GUAIFENESIN 20 MG/ML 5ML CUP PO ×2 (08:47→22:04)
[2018-12-15] MEDS: POTASSIUM CHLORIDE 20 MEQ POWDER FOR ORAL SOLN NGT (08:47)
[2018-12-15] MEDS: FLUCONAZOLE 100 MG TAB PEG (08:48)
[2018-12-15] MEDS: CALCIUM/VITAMIN D (500/200) TAB PO ×2 (08:48→22:03)
[2018-12-15] MEDS: COLLAGENASE 5 GM (UD JAR) TOP (08:48)
[2018-12-15] MEDS: SULFASALAZINE 500 MG TAB PO ×3 (08:48→22:04)
[2018-12-15] MEDS: predniSONE 10 MG TAB GTB (08:48)
[2018-12-15] MEDS: PRIMIDONE 250 MG TAB PO ×2 (08:48→22:04)
[2018-12-15] MEDS: PREGABALIN 75 MG CAP PO ×2 (08:48→22:05)
[2018-12-15] MEDS: FLUOXETINE 10 MG CAP PO (08:48)
[2018-12-15] MEDS: ASCORBIC ACID 500 MG TAB PO (08:48)
[2018-12-15] MEDS: METOPROLOL 25 MG TAB PO ×3 (09:00→22:03)
[2018-12-15] MEDS: FUROSEMIDE 40 MG INJ IV (15:04)
[2018-12-15 15:48] LABS: INR 1.77; PROTIME 20.7 Sec (11.9-14.9); PT RATIO 1.6
[2018-12-15] MEDS: WARFARIN 10 MG TAB GTB (17:50)
[2018-12-15] MEDS: ATORVASTATIN 80 MG TAB PO (22:02)
[2018-12-16] MEDS: ALBUTEROL/IPRATROPIUM (NEB) 3 ML AMP HHN ×6 (00:51→21:02)
[2018-12-16] MEDS: ALTEPLASE (CATHFLO) 2 MG INJ CATHETER (05:15)
[2018-12-16] MEDS: LANSOPRAZOLE 30 MG CAP PEG (05:51)
[2018-12-16 06:23] LABS: ADD MAN DIFF? NO
[2018-12-16 06:26] LABS: WHITE BLOOD COUNT 9.7 10^3/ul (4.8-10.8)
[2018-12-16 06:26] LABS: BASOPHILS % 0.4 % (0.0-2.0); EOSINOPHILS # 0.3 10^3/ul (0.0-0.5); EOSINOPHILS % 3.2 % (0.0-7.0); HEMATOCRIT 30.7 % (37.0-47.0); HEMOGLOBIN 9.6 g/dl (12.0-16.0); LYMPHOCYTES # 1.6 10^3/ul (0.8-2.9); LYMPHOCYTES % 16.6 % (15.0-51.0); MEAN CORPUSCULAR HEMOGLOBIN 25.6 pg (29.0-33.0); MEAN CORPUSCULAR HGB CONC 31.3 g/dl (32.0-37.0); MEAN CORPUSCULAR VOLUME 81.9 fl (82.0-101.0); MEAN PLATELET VOLUME 10.4 fl (7.4-10.4); MONOCYTE # 1.2 10^3/ul (0.3-0.9); NEUTROPHIL # 6.4 10^3/ul (1.6-7.5); NEUTROPHILS % 65.7 % (39.0-77.0); PLATELET COUNT 167 10^3/UL (140-415); RED BLOOD COUNT 3.75 10^6/ul (4.20-5.40); RED CELL DISTRIBUTION WIDTH 21.4 % (11.5-14.5)
[2018-12-16 06:45] LABS: PROTIME 25.4 Sec (11.9-14.9)
[2018-12-16 07:09] LABS: ANION GAP 7 (5-13); BLOOD UREA NITROGEN 19 mg/dl (7-20); CALCIUM 7.1 mg/dl (8.4-10.2); CARBON DIOXIDE 31 mmol/L (21-31); CHLORIDE 82 mmol/L (97-110); CREATININE 0.29 mg/dl (0.44-1.00); GLUCOSE 122 mg/dl (70-220); POTASSIUM 3.5 mmol/L (3.5-5.1); SODIUM 120 mmol/L (135-144)
[2018-12-16] MEDS: FLUOXETINE 10 MG CAP PO (08:52)
[2018-12-16] MEDS: ASCORBIC ACID 500 MG TAB PO (08:52)
[2018-12-16] MEDS: predniSONE 10 MG TAB GTB (08:52)
[2018-12-16] MEDS: FLUCONAZOLE 100 MG TAB PEG (08:53)
[2018-12-16] MEDS: CALCIUM/VITAMIN D (500/200) TAB PO ×2 (08:53→20:27)
[2018-12-16] MEDS: PRIMIDONE 250 MG TAB PO ×2 (08:53→20:29)
[2018-12-16] MEDS: SULFASALAZINE 500 MG TAB PO ×3 (08:53→20:30)
[2018-12-16] MEDS: POTASSIUM CHLORIDE 20 MEQ POWDER FOR ORAL SOLN GTB (08:56)
[2018-12-16] MEDS: PREGABALIN 75 MG CAP PO ×2 (08:57→20:29)
[2018-12-16] MEDS: GUAIFENESIN 20 MG/ML 5ML CUP PO ×2 (08:58→20:30)
[2018-12-16] MEDS: DOCUSATE SODIUM 10 MG/ML (10ML CUP) PEG ×2 (08:58→20:31)
[2018-12-16] MEDS: COLLAGENASE 5 GM (UD JAR) TOP (08:59)
[2018-12-16] MEDS: FUROSEMIDE 40 MG INJ IV (08:59)
[2018-12-16] MEDS: METOPROLOL 25 MG TAB PO ×3 (10:53→20:29)
[2018-12-16] MEDS: BISACODYL 10 MG SUPP PR (15:51)
[2018-12-16] MEDS: WARFARIN 3 MG TAB GTB (18:55)
[2018-12-16] MEDS: ATORVASTATIN 80 MG TAB PO (20:27)
[2018-12-16 21:25] LABS: OSMOLALITY 279 mOsm/kg (280-295)
[2018-12-17] MEDS: ALBUTEROL/IPRATROPIUM (NEB) 3 ML AMP HHN ×6 (01:27→21:29)
[2018-12-17 04:48] LABS: AADO2 Arterial 47.1 mmHg (7.0-24.0); Allen Test ACCEPTAB; Arterial Base Excess 10.8 mmol/L (-3.0-3); Arterial Blood Gas Oxygen Sat 98.8 mmHG (95.0-100.0); Arterial COHb 0.9 % (0.0-3.0); Arterial Fraction of Oxyhgb 97.6 % (93.0-99.0); Arterial HCO3 34.8 mmol/L (22.0-26.0); Arterial MetHb 0.3 % (0.0-1.5); Arterial pCO2 43.7 mmhg (35-45); MODE NASAL CANNULA; Site Right Radial
[2018-12-17] MEDS: LANSOPRAZOLE 30 MG CAP PEG (05:39)
[2018-12-17 06:54] LABS: ADD MAN DIFF? NO
[2018-12-17 07:01] LABS: BASOPHILS % 0.4 % (0.0-2.0); EOSINOPHILS # 0.3 10^3/ul (0.0-0.5); EOSINOPHILS % 3.3 % (0.0-7.0); HEMATOCRIT 34.2 % (37.0-47.0); HEMOGLOBIN 10.8 g/dl (12.0-16.0); LYMPHOCYTES # 1.4 10^3/ul (0.8-2.9); LYMPHOCYTES % 14.5 % (15.0-51.0); MEAN CORPUSCULAR HEMOGLOBIN 25.6 pg (29.0-33.0); MEAN CORPUSCULAR HGB CONC 31.6 g/dl (32.0-37.0); MEAN PLATELET VOLUME 11.4 fl (7.4-10.4); MONOCYTE # 0.9 10^3/ul (0.3-0.9); MONOCYTES % 9.4 % (0.0-11.0); NEUTROPHIL # 6.5 10^3/ul (1.6-7.5); NEUTROPHILS % 70.4 % (39.0-77.0); PLATELET COUNT 179 10^3/UL (140-415); RED BLOOD COUNT 4.22 10^6/ul (4.20-5.40); RED CELL DISTRIBUTION WIDTH 21.7 % (11.5-14.5)
[2018-12-17 07:01] LABS: WHITE BLOOD COUNT 9.3 10^3/ul (4.8-10.8)
[2018-12-17 07:18] LABS: INR 3.19; PROTIME 32.7 Sec (11.9-14.9); PT RATIO 2.6
[2018-12-17 07:43] LABS: ANION GAP 6 (5-13); BLOOD UREA NITROGEN 21 mg/dl (7-20); CALCIUM 8.6 mg/dl (8.4-10.2); CARBON DIOXIDE 37 mmol/L (21-31); CHLORIDE 89 mmol/L (97-110); GLUCOSE 179 mg/dl (70-220); SODIUM 132 mmol/L (135-144)
[2018-12-17 08:19] LABS: OSMOLALITY,URINE 518 mOsm/kg (250-1200)
[2018-12-17] MEDS: GUAIFENESIN 20 MG/ML 5ML CUP PO ×2 (08:36→20:07)
[2018-12-17] MEDS: DOCUSATE SODIUM 10 MG/ML (10ML CUP) PEG ×2 (08:36→20:07)
[2018-12-17] MEDS: FUROSEMIDE 40 MG INJ IV (08:37)
[2018-12-17] MEDS: POTASSIUM CHLORIDE 20 MEQ POWDER FOR ORAL SOLN GTB (08:37)
[2018-12-17] MEDS: COLLAGENASE 5 GM (UD JAR) TOP (08:43)
[2018-12-17] MEDS: CALCIUM/VITAMIN D (500/200) TAB PO ×2 (08:47→20:08)
[2018-12-17] MEDS: SULFASALAZINE 500 MG TAB PO ×3 (08:48→20:09)
[2018-12-17] MEDS: ASCORBIC ACID 500 MG TAB PO (08:48)
[2018-12-17] MEDS: FLUCONAZOLE 100 MG TAB PEG (08:48)
[2018-12-17] MEDS: METOPROLOL 25 MG TAB PO ×3 (08:48→20:08)
[2018-12-17] MEDS: FLUOXETINE 10 MG CAP PO (08:49)
[2018-12-17] MEDS: PRIMIDONE 250 MG TAB PO ×2 (08:49→20:08)
[2018-12-17] MEDS: PREGABALIN 75 MG CAP PO ×2 (08:52→20:08)
[2018-12-17] MEDS: ACETAMINOPHEN 325 MG TAB PO ×2 (09:17→20:07)
[2018-12-17 11:48] LABS: SODIUM,URINE RANDOM < 13 mmol/L (30-90)
[2018-12-17 12:44] LABS: OCCULT BLOOD STOOL NEGATIVE (NEGATIVE)
[2018-12-17 17:45] LABS: ANION GAP 6 (5-13); BLOOD UREA NITROGEN 23 mg/dl (7-20); CALCIUM 8.3 mg/dl (8.4-10.2); CARBON DIOXIDE 37 mmol/L (21-31); CHLORIDE 89 mmol/L (97-110); CREATININE 0.33 mg/dl (0.44-1.00); GLUCOSE 170 mg/dl (70-220); POTASSIUM 4.6 mmol/L (3.5-5.1); SODIUM 132 mmol/L (135-144)
[2018-12-17] MEDS: traMADol 50 MG TAB GTB (18:42)
[2018-12-17] MEDS: ATORVASTATIN 80 MG TAB PO (20:08)
[2018-12-18] MEDS: ALBUTEROL/IPRATROPIUM (NEB) 3 ML AMP HHN ×6 (01:14→21:44)
[2018-12-18 06:10] LABS: ADD MAN DIFF? NO
[2018-12-18] MEDS: LANSOPRAZOLE 30 MG CAP PEG (06:11)
[2018-12-18 06:13] LABS: BASOPHIL # 0.1 10^3/ul (0.0-0.1); BASOPHILS % 0.6 % (0.0-2.0); EOSINOPHILS # 0.4 10^3/ul (0.0-0.5); EOSINOPHILS % 4.3 % (0.0-7.0); HEMATOCRIT 33.5 % (37.0-47.0); HEMOGLOBIN 10.4 g/dl (12.0-16.0); LYMPHOCYTES # 1.4 10^3/ul (0.8-2.9); LYMPHOCYTES % 17.5 % (15.0-51.0); MEAN CORPUSCULAR HEMOGLOBIN 25.3 pg (29.0-33.0); MEAN CORPUSCULAR VOLUME 81.5 fl (82.0-101.0); MEAN PLATELET VOLUME 10.5 fl (7.4-10.4); MONOCYTE # 0.8 10^3/ul (0.3-0.9); MONOCYTES % 9.5 % (0.0-11.0); NEUTROPHIL # 5.4 10^3/ul (1.6-7.5); NEUTROPHILS % 66.2 % (39.0-77.0); PLATELET COUNT 165 10^3/UL (140-415); RED BLOOD COUNT 4.11 10^6/ul (4.20-5.40); RED CELL DISTRIBUTION WIDTH 21.7 % (11.5-14.5)
[2018-12-18 06:13] LABS: WHITE BLOOD COUNT 8.2 10^3/ul (4.8-10.8)
[2018-12-18 06:32] LABS: INR 3.54; PROTIME 35.4 Sec (11.9-14.9); PT RATIO 2.8
[2018-12-18 06:58] LABS: ANION GAP 5 (5-13); BLOOD UREA NITROGEN 22 mg/dl (7-20); CALCIUM 8.5 mg/dl (8.4-10.2); CARBON DIOXIDE 37 mmol/L (21-31); CHLORIDE 90 mmol/L (97-110); GLUCOSE 168 mg/dl (70-220); POTASSIUM 4.6 mmol/L (3.5-5.1); SODIUM 132 mmol/L (135-144)
[2018-12-18] MEDS: COLLAGENASE 5 GM (UD JAR) TOP (09:00)
[2018-12-18] MEDS: DOCUSATE SODIUM 10 MG/ML (10ML CUP) PEG ×2 (09:05→22:14)
[2018-12-18] MEDS: GUAIFENESIN 20 MG/ML 5ML CUP PO ×2 (09:05→22:15)
[2018-12-18] MEDS: PRIMIDONE 250 MG TAB PO ×2 (09:06→22:14)
[2018-12-18] MEDS: FLUOXETINE 10 MG CAP PO (09:06)
[2018-12-18] MEDS: SULFASALAZINE 500 MG TAB PO ×3 (09:06→22:14)
[2018-12-18] MEDS: FLUCONAZOLE 100 MG TAB PEG (09:06)
[2018-12-18] MEDS: ASCORBIC ACID 500 MG TAB PO (09:06)
[2018-12-18] MEDS: CALCIUM/VITAMIN D (500/200) TAB PO ×2 (09:06→22:14)
[2018-12-18] MEDS: POTASSIUM CHLORIDE 20 MEQ POWDER FOR ORAL SOLN GTB (09:06)
[2018-12-18] MEDS: PREGABALIN 75 MG CAP PO ×2 (09:06→22:19)
[2018-12-18] MEDS: FUROSEMIDE 40 MG INJ IV (09:07)
[2018-12-18] MEDS: METOPROLOL 25 MG TAB PO ×3 (09:07→22:14)
[2018-12-18] MEDS: ATORVASTATIN 80 MG TAB PO (22:14)
[2018-12-19] MEDS: ALBUTEROL/IPRATROPIUM (NEB) 3 ML AMP HHN ×6 (00:56→21:03)
[2018-12-19] MEDS: LANSOPRAZOLE 30 MG CAP PEG (06:05)
[2018-12-19 06:52] LABS: RETICULOCYTE COUNT # 0.154 X10^6 (0.020-0.110); RETICULOCYTE COUNT % 3.9 % (0.5-1.5)
[2018-12-19 06:52] LABS: RETICULOCYTE RBC 3.96
[2018-12-19 07:21] LABS: INR 2.37
[2018-12-19 07:26] LABS: IRON 47 ug/dl (35-150)
[2018-12-19 07:31] LABS: ANION GAP 6 (5-13); BLOOD UREA NITROGEN 23 mg/dl (7-20); CALCIUM 8.3 mg/dl (8.4-10.2); CARBON DIOXIDE 36 mmol/L (21-31); CHLORIDE 91 mmol/L (97-110); CREATININE 0.31 mg/dl (0.44-1.00); GLUCOSE 169 mg/dl (70-220); POTASSIUM 4.2 mmol/L (3.5-5.1); SODIUM 133 mmol/L (135-144)
[2018-12-19 07:35] LABS: % IRON SATURATION 18 % SAT (22-52); TOTAL IRON BINDING CAPACITY 260 ug/dl (241-421)
[2018-12-19 08:34] LABS: FOLATE 6.6 ng/ml (2.8-20.0)
[2018-12-19] MEDS: GUAIFENESIN 20 MG/ML 5ML CUP PO ×2 (08:48→21:44)
[2018-12-19] MEDS: POTASSIUM CHLORIDE 20 MEQ POWDER FOR ORAL SOLN GTB (08:49)
[2018-12-19] MEDS: CALCIUM/VITAMIN D (500/200) TAB PO ×2 (08:49→21:32)
[2018-12-19] MEDS: FLUOXETINE 10 MG CAP PO (08:49)
[2018-12-19] MEDS: FLUCONAZOLE 100 MG TAB PEG (08:49)
[2018-12-19] MEDS: COLLAGENASE 5 GM (UD JAR) TOP (08:49)
[2018-12-19] MEDS: ASCORBIC ACID 500 MG TAB PO (08:51)
[2018-12-19] MEDS: PRIMIDONE 250 MG TAB PO ×2 (08:51→21:33)
[2018-12-19] MEDS: SULFASALAZINE 500 MG TAB PO ×3 (08:52→21:32)
[2018-12-19] MEDS: METOPROLOL 25 MG TAB PO ×3 (08:54→21:33)
[2018-12-19] MEDS: FUROSEMIDE 40 MG INJ IV (08:55)
[2018-12-19] MEDS: PREGABALIN 75 MG CAP PO ×2 (08:56→21:34)
[2018-12-19] MEDS: DOCUSATE SODIUM 10 MG/ML (10ML CUP) PEG ×2 (08:56→21:44)
[2018-12-19] MEDS: WARFARIN 2 MG TAB GTB (16:59)
[2018-12-19] MEDS: ATORVASTATIN 80 MG TAB PO (21:32)
[2018-12-20] MEDS: ALBUTEROL/IPRATROPIUM (NEB) 3 ML AMP HHN ×5 (00:44→16:46)
[2018-12-20 05:48] LABS: ADD MAN DIFF? NO
[2018-12-20] MEDS: LANSOPRAZOLE 30 MG CAP PEG (05:48)
[2018-12-20 05:56] LABS: BASOPHILS % 0.3 % (0.0-2.0); EOSINOPHILS # 0.2 10^3/ul (0.0-0.5); EOSINOPHILS % 2.5 % (0.0-7.0); HEMATOCRIT 34.7 % (37.0-47.0); LYMPHOCYTES # 1.2 10^3/ul (0.8-2.9); LYMPHOCYTES % 12.4 % (15.0-51.0); MEAN CORPUSCULAR HEMOGLOBIN 25.7 pg (29.0-33.0); MEAN CORPUSCULAR HGB CONC 31.7 g/dl (32.0-37.0); MEAN CORPUSCULAR VOLUME 81.1 fl (82.0-101.0); MONOCYTE # 0.8 10^3/ul (0.3-0.9); MONOCYTES % 8.5 % (0.0-11.0); NEUTROPHIL # 7.2 10^3/ul (1.6-7.5); PLATELET COUNT 190 10^3/UL (140-415); RED BLOOD COUNT 4.28 10^6/ul (4.20-5.40); RED CELL DISTRIBUTION WIDTH 21.7 % (11.5-14.5)
[2018-12-20 05:56] LABS: WHITE BLOOD COUNT 9.5 10^3/ul (4.8-10.8)
[2018-12-20 06:11] LABS: INR 2.02; PROTIME 22.9 Sec (11.9-14.9); PT RATIO 1.8
[2018-12-20 06:23] LABS: ANION GAP 6 (5-13); BLOOD UREA NITROGEN 22 mg/dl (7-20); CALCIUM 8.8 mg/dl (8.4-10.2); CARBON DIOXIDE 35 mmol/L (21-31); CHLORIDE 93 mmol/L (97-110); CREATININE 0.29 mg/dl (0.44-1.00); GLUCOSE 179 mg/dl (70-220); POTASSIUM 4.4 mmol/L (3.5-5.1); SODIUM 134 mmol/L (135-144)
[2018-12-20] MEDS: GUAIFENESIN 20 MG/ML 5ML CUP PO (08:22)
[2018-12-20] MEDS: DOCUSATE SODIUM 10 MG/ML (10ML CUP) PEG (08:22)
[2018-12-20] MEDS: FLUOXETINE 10 MG CAP PO (08:22)
[2018-12-20] MEDS: POTASSIUM CHLORIDE 20 MEQ POWDER FOR ORAL SOLN GTB (08:22)
[2018-12-20] MEDS: PREGABALIN 75 MG CAP PO (08:22)
[2018-12-20] MEDS: CALCIUM/VITAMIN D (500/200) TAB PO (08:22)
[2018-12-20] MEDS: PRIMIDONE 250 MG TAB PO (08:22)
[2018-12-20] MEDS: FUROSEMIDE 40 MG TAB GTB (08:23)
[2018-12-20] MEDS: SULFASALAZINE 500 MG TAB PO ×2 (08:23→13:27)
[2018-12-20] MEDS: ASCORBIC ACID 500 MG TAB PO (08:23)
[2018-12-20] MEDS: COLLAGENASE 5 GM (UD JAR) TOP (08:24)
[2018-12-20] MEDS: METOPROLOL 25 MG TAB PO ×2 (08:24→13:00)
[2018-12-20] MEDS: WARFARIN 5 MG TAB NGT (16:53)
== END 2018-12-20 19:25 | DRG 291 ==
LOC: 6WM 12-12 22:39 → E/R 09:46 → 6WM 12:46
PROVIDERS: Internal Medicine
PROC: 0DH63UZ Insertion of Feeding Device into Stomach, Percutaneous Approach (ICD-10-PCS; principal; 2018-12-11 15:30)
PROC: 02HV33Z Insertion of Infusion Device into Superior Vena Cava, Percutaneous Approach (ICD-10-PCS; 2018-12-11 15:30)
PROC: 3E0G76Z Introduction of Nutritional Substance into Upper GI, Via Natural or Artificial Opening (ICD-10-PCS; 2018-12-11 15:30)
DX: I11.0 Hypertensive heart disease with heart failure (principal); J96.00 Acute respiratory failure, unspecified whether with hypoxia or hypercapnia; J69.0 Pneumonitis due to inhalation of food and vomit; I63.81 Other cerebral infarction due to occlusion or stenosis of small artery; N39.0 Urinary tract infection, site not specified; E87.1 Hypo-osmolality and hyponatremia; I69.351 Hemiplegia and hemiparesis following cerebral infarction affecting right dominant side; D63.8 Anemia in other chronic diseases classified elsewhere; E87.6 Hypokalemia; E78.5 Hyperlipidemia, unspecified; F01.50 Vascular dementia, unspecified severity, without behavioral disturbance, psychotic disturbance, mood disturbance, and anxiety; F32.9 Major depressive disorder, single episode, unspecified; G40.909 Epilepsy, unspecified, not intractable, without status epilepticus; I50.9 Heart failure, unspecified; I48.2 Chronic atrial fibrillation; I69.320 Aphasia following cerebral infarction; J45.909 Unspecified asthma, uncomplicated; K29.00 Acute gastritis without bleeding; R13.10 Dysphagia, unspecified; R26.2 Difficulty in walking, not elsewhere classified; B96.20 Unspecified Escherichia coli [E. coli] as the cause of diseases classified elsewhere; B95.2 Enterococcus as the cause of diseases classified elsewhere; Z66 Do not resuscitate; Z96.641 Presence of right artificial hip joint; Z96.651 Presence of right artificial knee joint
CPT/HCPCS: 36415; 36569; 36600; 70470; 70551; 71045; 76937; 80048; 80053; 80202; 81001; 82270; 82565; 82607; 82728; 82746; 82803; 83540; 83605; 83735; 83880; 83930; 83935; 84300; 84436; 84443; 84484; 84520; 85025; 85045; 85610; 85730; 87040-91; 87081; 87086; 92526; 92610; 93005; 93306; 94640; 94644; 94664; 94760; 95819; 96365; 96375; 99291-25

== ENCOUNTER 2019-05-03 11:18 | Day surgery (SDC) | payer OTHER, MEDICARE ==
[2019-05-03] MEDS ORDERED: CEFAZOLIN 1 GM/50 ML (PMX) IVPB (11:25)
[2019-05-03] MEDS ORDERED: PROPOFOL 200 MG INJ (11:25)
[2019-05-03] MEDS ORDERED: FENTAnyl 50 MCG/ML VIAL (11:25)
== END 2019-05-03 14:25 | disposition home or self-care (01) ==
LOC: GIL 11:18
DX: R13.14 Dysphagia, pharyngoesophageal phase (principal); Z86.73 Personal history of transient ischemic attack (TIA), and cerebral infarction without residual deficits
CPT/HCPCS: 43246